=== PATIENT | male | born 1990 | race Caucasian/White ===

== ENCOUNTER 2018-10-04 10:41 | Emergency (ER) | payer SELFPAY ==
[~2018-10-04] VITALS: Ht 185.4 cm; Wt 106.6 kg
[2018-10-04 11:21] VITALS: BP 127/64
== END 2018-10-04 12:15 | disposition home or self-care (01) ==
LOC: ER 10:46
DX: S82.61XA Displaced fracture of lateral malleolus of right fibula, initial encounter for closed fracture (principal); S93.402A Sprain of unspecified ligament of left ankle, initial encounter; S93.401A Sprain of unspecified ligament of right ankle, initial encounter; V19.9XXA Pedal cyclist (driver) (passenger) injured in unspecified traffic accident, initial encounter; Y93.I9 Activity, other involving external motion; Y92.488 Other paved roadways as the place of occurrence of the external cause; Y99.8 Other external cause status
CPT/HCPCS: 73610